=== PATIENT | male | born 1965 | race Caucasian/White ===

== ENCOUNTER 2017-05-18 09:38 | Day surgery (SDC) | payer OTHER ==
[2017-05-18] MEDS ORDERED: PROPOFOL 10 MG/ML VIAL IV ONE (09:39)
[2017-05-18] MEDS ORDERED: LIDOCAINE 2% MDV (20MG/ML) 20ML VIAL IV ONE (09:39)
--- NOTE | 2017-05-19 12:20 | Operative Note ---
DATE OF SURGERY: 05/18/2017 OPERATION: COLONOSCOPY to the cecum. INDICATION: Personal history of adenomatous polyps. Last colonoscopy was in 2011. He also has a family history of colon cancer in his mother who had colon cancer diagnosed in her 40s. Colonoscopy is performed at this time for surveillance. ANESTHESIA: Intravenous sedation was administered by the department of anesthesiology and included Diprivan titrated to effect. PROCEDURE: Following informed consent from this alert individual including a discussion of the risks and benefits of the procedure and an opportunity for the patient to ask questions, the patient was in the left lateral decubitus position. A digital rectal examination was performed. No abnormalities were noted. Following this, the Olympus [id number] video colonoscope was inserted into the rectum without resistance. The rectal mucosa had a normal appearance with normal folds and distensibility. The colonoscope was advanced up through the colon to the level of the cecum without much difficulty. Throughout the bowel the mucosa appeared normal, the folds were normal, and the bowel was fairly well distensible. The cecum was defined by noting the appendiceal orifice and ileocecal valve. The colon preparation was good. Retroflexion was accomplished in the cecum and found to be unremarkable. From the base of the cecum, the colonoscope was then slowly withdrawn. No changes were noted until the rectum was reached. In the rectum, retroflexion revealed small internal hemorrhoids. The endoscope was straightened and withdrawn. The patient tolerated the procedure well and was returned to the recovery area in stable condition. IMPRESSION: 1. Small internal hemorrhoids. 2. Otherwise unremarkable colonoscopy to the cecum. RECOMMENDATIONS: The patient was advised to have surveillance colonoscopy in 5 years' time or sooner if problems arise. Followup will be with Dr. Augustine Robbins. As always, thank you for allowing me to participate in the care of your patient. CC: Dr. Augustine OLVERA
== END 2017-05-18 11:41 | disposition home or self-care (01) ==
LOC: HOP 09:38
PROVIDERS: ATTEND Internal Medicine Gastroenterology
DX: Z12.11 Encounter for screening for malignant neoplasm of colon (principal); Z86.010 Personal history of colon polyps; Z80.0 Family history of malignant neoplasm of digestive organs; K64.8 Other hemorrhoids; E78.00 Pure hypercholesterolemia, unspecified
CPT/HCPCS: 00812; G0105